=== PATIENT | female | born 1945 | race Caucasian/White ===

== ENCOUNTER 2022-05-28 10:10 | Observation (INO) ==
[2022-05-28] MEDS ORDERED: methylPREDNISolone SOD SUC 125 MG/2 ML VIAL IV STA (10:40)
[2022-05-28] MEDS ORDERED: ALBUTEROL 2.5 MG/3 ML NEB RESP TX STA ×2 (10:40→13:11)
[2022-05-28] MEDS ORDERED: LEVOFLOXACIN INJ 500 MG/100 ML PREMIX IV STA (11:09)
[2022-05-28 12:25] LABS: Basophils % 0.3 % (0.0-0.8); Eosinophils # 0.3 10*3/uL (0.0-0.87); Eosinophils % 4.5 % (0.00-10.9); Hematocrit 38.4 VOL% (35.7-47.0); Immature Granulocytes % 0.3 %; Immature Granulocytes Absolute 0.02 #; Lymphocytes # 1.6 10*3/uL (1.4-4.0); Lymphocytes % 22.2 % (21.3-54.2); Mean Corpuscular HGB Conc 31.3 GM/DL (32-36); Mean Corpuscular Volume 93.7 FL (87-102); Mean Platelet Volume 9.1 FL (9.6-12.0); Monocytes # 0.6 10*3/uL (0.11-0.8); Monocytes % 8.2 % (1.7-12.7); Neutrophils % 64.5 % (38.7-73.9); Platelet Count 208 T/CUMM (130-400); Red Cell Distribution Width 13.1 % (9.3-17.3); White Blood Count 7.3 T/CUMM (4-12)
[2022-05-28 12:55] LABS: Albumin 3.5 G/DL (3.4-5.0); Bilirubin,Total 0.6 MG/DL (0.20-1.00); Potassium 3.7 MMOL/L (3.5-5.1); Total Protein 6.5 G/DL (6.4-8.2)
[2022-05-28] MEDS ORDERED: ALBUTEROL/IPRATROPIUM 3 ML NEB RESP TX PRN (14:00)
[2022-05-28] MEDS: amLODIPine 5 MG TABLET PO SCH (15:00)
[2022-05-28] MEDS: PANTOPRAZOLE 40 MG TABLET PO SCH (15:00)
[2022-05-28] MEDS: ENOXAPARIN 40 MG/0.4 ML SYRINGE SUBCUT SCH (16:13)
[2022-05-28] MEDS: DOXYCYCLINE HYCLATE INJ 100 MG in SODIUM CHLORIDE 0.9% 100 ML IV SCH (16:15)
[2022-05-28] MEDS: DOCUSATE SODIUM 100 MG CAPSULE PO SCH (21:37)
[2022-05-28] MEDS: methylPREDNISolone SOD SUC 125 MG/2 ML VIAL IV SCH (21:37)
[2022-05-28] MEDS: POLYETHYLENE GLYCOL POWDER 17 GM PACK PO SCH (21:37)
[2022-05-29] MEDS: DOXYCYCLINE HYCLATE INJ 100 MG in SODIUM CHLORIDE 0.9% 100 ML IV SCH ×2 (04:15→16:01)
[2022-05-29] MEDS: methylPREDNISolone SOD SUC 125 MG/2 ML VIAL IV SCH (04:16)
[2022-05-29 06:12] LABS: Hematocrit 35.9 VOL% (35.7-47.0); Hemoglobin 11.3 GM/DL (12.0-16.0); Immature Granulocytes % 1.2 %; Immature Granulocytes Absolute 0.08 #; Lymphocytes # 0.4 10*3/uL (1.4-4.0); Lymphocytes % 5.7 % (21.3-54.2); Mean Corpuscular HGB Conc 31.5 GM/DL (32-36); Mean Corpuscular Volume 93.2 FL (87-102); Mean Platelet Volume 9.8 FL (9.6-12.0); Monocytes # 0.1 10*3/uL (0.11-0.8); Monocytes % 0.9 % (1.7-12.7); Neutrophils % 92.2 % (38.7-73.9); Platelet Count 205 T/CUMM (130-400); Red Blood Count 3.85 MC/CUMM (3.8-5.5); Red Cell Distribution Width 12.9 % (9.3-17.3); White Blood Count 6.5 T/CUMM (4-12)
[2022-05-29 06:35] LABS: Calcium 8.7 MG/DL (8.5-10.1); Osmolality,Calculated 290.1 MOS/KG (273-304); Potassium 3.8 MMOL/L (3.5-5.1)
[2022-05-29 08:06] LABS: Band Neutrophils 6 % (0-10); Lymphocytes 8 % (20-55); Platelet Estimate Normal; Total Cells Counted 100
[2022-05-29 08:07] LABS: Anisocytosis 1+; Burr Cells Few; Macrocytosis 1+
[2022-05-29] MEDS ORDERED: GLUCAGON 1 MG VIAL IM PRN (08:17)
[2022-05-29] MEDS ORDERED: DEXTROSE 10% 250 ML BAG IV PRN (08:20)
[2022-05-29] MEDS: amLODIPine 5 MG TABLET PO SCH (08:39)
[2022-05-29] MEDS: PANTOPRAZOLE 40 MG TABLET PO SCH (08:39)
[2022-05-29] MEDS: POLYETHYLENE GLYCOL POWDER 17 GM PACK PO SCH ×2 (08:39→21:53)
[2022-05-29] MEDS: VIBEGRON 75 MG PO SCH (08:39)
[2022-05-29] MEDS: DOCUSATE SODIUM 100 MG CAPSULE PO SCH ×2 (08:39→21:53)
[2022-05-29] MEDS ORDERED: SODIUM PHOSPHATE ENEMA 133 ML BOTTLE RECTAL ONE (10:15)
[2022-05-29] MEDS: INSULIN LISPRO 100 UNIT/ML SUBCUT SCH ×3 (13:15→21:55)
[2022-05-29] MEDS: methylPREDNISolone SOD SUC 40 MG/1 ML VIAL IV SCH (16:00)
[2022-05-29] MEDS: ENOXAPARIN 40 MG/0.4 ML SYRINGE SUBCUT SCH (16:00)
[2022-05-29] MEDS: FLUTICASONE/SALMETEROL 500-50 DISKUS 14 DOSE INH SCH ×2 (16:55→21:57)
[2022-05-30] MEDS: methylPREDNISolone SOD SUC 40 MG/1 ML VIAL IV SCH (03:16)
[2022-05-30] MEDS: DOXYCYCLINE HYCLATE INJ 100 MG in SODIUM CHLORIDE 0.9% 100 ML IV SCH (03:17)
[2022-05-30] MEDS ORDERED: predniSONE 20 MG TABLET PO SCH (09:00)
[2022-05-30] MEDS: INSULIN LISPRO 100 UNIT/ML SUBCUT SCH ×2 (09:42→12:08)
[2022-05-30] MEDS: amLODIPine 5 MG TABLET PO SCH (09:43)
[2022-05-30] MEDS: PANTOPRAZOLE 40 MG TABLET PO SCH (09:43)
[2022-05-30] MEDS: VIBEGRON 75 MG PO SCH (09:44)
[2022-05-30] MEDS: FLUTICASONE/SALMETEROL 500-50 DISKUS 14 DOSE INH SCH (09:44)
[2022-05-30] MEDS: POLYETHYLENE GLYCOL POWDER 17 GM PACK PO SCH (09:45)
[2022-05-30] MEDS: DOCUSATE SODIUM 100 MG CAPSULE PO SCH (09:45)
[2022-05-30 12:47] VITALS: BP 144/59
== END 2022-05-30 13:10 | disposition home or self-care (01) ==
LOC: SUATTDRO → N.EDINP 10:10 → N.ED 10:10 → SUATTDRO 13:57 → N.EDINP 05-29 01:05 → N.3E 05-29 01:35
PROVIDERS: ADMIT Internal Medicine; ATTEND Internal Medicine

== ENCOUNTER 2022-07-03 15:56 | Inpatient (IN) ==
[2022-07-03] MEDS ORDERED: DEXAMETHASONE 4 MG/1 ML VIAL IV STA (16:44)
[2022-07-03] MEDS ORDERED: ALBUTEROL NEB SOLN 5 MG/ML 20 ML/BOTTLE CONT NEB STA (16:44)
[2022-07-03 16:47] LABS: Basophils % 0.4 % (0.0-0.8); Eosinophils # 0.8 10*3/uL (0.0-0.87); Hemoglobin 11.1 GM/DL (12.0-16.0); Immature Granulocytes % 0.7 %; Immature Granulocytes Absolute 0.08 #; Lymphocytes # 0.9 10*3/uL (1.4-4.0); Lymphocytes % 8.3 % (21.3-54.2); Mean Corpuscular HGB Conc 30.8 GM/DL (32-36); Mean Platelet Volume 9.3 FL (9.6-12.0); Monocytes % 8.6 % (1.7-12.7); Platelet Count 231 T/CUMM (130-400); Red Blood Count 3.87 MC/CUMM (3.8-5.5); Red Cell Distribution Width 13.5 % (9.3-17.3); White Blood Count 11.3 T/CUMM (4-12)
[2022-07-03] MEDS ORDERED: cefTRIAXone 1,000 MG in SODIUM CHLORIDE 0.9% 100 ML IV STA (17:12)
[2022-07-03] MEDS ORDERED: AZITHROMYCIN INJ 500 MG in SODIUM CHLORIDE 0.9% 250 ML IV STA (17:12)
[2022-07-03 17:22] LABS: Albumin 3.2 G/DL (3.4-5.0); Bilirubin,Total 0.6 MG/DL (0.20-1.00); Calcium 8.9 MG/DL (8.5-10.1); Potassium 4.4 MMOL/L (3.5-5.1); Total Protein 6.1 G/DL (6.4-8.2)
[2022-07-03] MEDS ORDERED: SODIUM CHLORIDE 0.9% 1,000 ML IV STA (18:01)
[2022-07-03] MEDS ORDERED: ONDANSETRON 4 MG/2 ML VIAL IV PRN (18:18)
[2022-07-03] MEDS ORDERED: ACETAMINOPHEN 325 MG TABLET PO PRN (18:18)
[2022-07-03] MEDS: ALBUTEROL/IPRATROPIUM 3 ML NEB RESP TX SCH (19:10)
[2022-07-03] MEDS: ENOXAPARIN 40 MG/0.4 ML SYRINGE SUBCUT SCH (21:09)
[2022-07-03] MEDS: DOCUSATE SODIUM 100 MG CAPSULE PO SCH (21:09)
[2022-07-03] MEDS: BUDESONIDE/FORMOTEROL 160-4.5 INHALER 6 GM INH SCH (21:09)
[2022-07-04] MEDS: ALBUTEROL/IPRATROPIUM 3 ML NEB RESP TX SCH ×5 (00:17→23:57)
[2022-07-04 07:05] LABS: Basophils % 0.4 % (0.0-0.8); Eosinophils # 0.9 10*3/uL (0.0-0.87); Eosinophils % 10.9 % (0.00-10.9); Hematocrit 31.5 VOL% (35.7-47.0); Hemoglobin 9.7 GM/DL (12.0-16.0); Immature Granulocytes % 0.5 %; Immature Granulocytes Absolute 0.04 #; Lymphocytes # 1.2 10*3/uL (1.4-4.0); Lymphocytes % 15.4 % (21.3-54.2); Mean Corpuscular HGB Conc 30.8 GM/DL (32-36); Mean Corpuscular Volume 94.3 FL (87-102); Monocytes # 0.9 10*3/uL (0.11-0.8); Monocytes % 10.9 % (1.7-12.7); Neutrophils % 61.9 % (38.7-73.9); Platelet Count 208 T/CUMM (130-400); Red Blood Count 3.34 MC/CUMM (3.8-5.5); Red Cell Distribution Width 13.6 % (9.3-17.3); White Blood Count 7.8 T/CUMM (4-12)
[2022-07-04 07:19] LABS: Albumin 2.8 G/DL (3.4-5.0); Bilirubin,Total 0.5 MG/DL (0.20-1.00); Calcium 8.7 MG/DL (8.5-10.1); Osmolality,Calculated 285.8 MOS/KG (273-304); Potassium 4.1 MMOL/L (3.5-5.1); Total Protein 5.9 G/DL (6.4-8.2)
[2022-07-04] MEDS: amLODIPine 5 MG TABLET PO SCH (09:05)
[2022-07-04] MEDS: PANTOPRAZOLE 40 MG TABLET PO SCH (09:06)
[2022-07-04] MEDS: VIBEGRON 75 MG PO SCH (09:06)
[2022-07-04] MEDS: BUDESONIDE/FORMOTEROL 160-4.5 INHALER 6 GM INH SCH ×2 (09:06→21:21)
[2022-07-04] MEDS: DOCUSATE SODIUM 100 MG CAPSULE PO SCH ×2 (09:06→20:21)
[2022-07-04] MEDS ORDERED: methylPREDNISolone SOD SUC 125 MG/2 ML VIAL IV ONE (09:30)
[2022-07-04] MEDS: LIDOCAINE 5% PATCH TRANSDERM SCH (13:30)
[2022-07-04] MEDS: cefTRIAXone 1,000 MG in SODIUM CHLORIDE 0.9% 100 ML IV SCH (16:53)
[2022-07-04] MEDS: AZITHROMYCIN INJ 500 MG in SODIUM CHLORIDE 0.9% 250 ML IV SCH (18:41)
[2022-07-04] MEDS: GABAPENTIN 100 MG CAPSULE PO SCH (20:21)
[2022-07-04] MEDS: ENOXAPARIN 40 MG/0.4 ML SYRINGE SUBCUT SCH (20:25)
[2022-07-04] MEDS: methylPREDNISolone SOD SUC 40 MG/1 ML VIAL IV SCH (20:25)
[2022-07-04] MEDS: ALBUTEROL 1.25 MG/3 ML NEB RESP TX PRN (21:55)
[2022-07-05] MEDS: ALBUTEROL 1.25 MG/3 ML NEB RESP TX PRN ×2 (05:58→10:00)
[2022-07-05 06:05] LABS: Basophils % 0.1 % (0.0-0.8); Hematocrit 33.9 VOL% (35.7-47.0); Hemoglobin 10.5 GM/DL (12.0-16.0); Immature Granulocytes % 1.2 %; Immature Granulocytes Absolute 0.09 #; Lymphocytes # 0.4 10*3/uL (1.4-4.0); Lymphocytes % 5.9 % (21.3-54.2); Mean Corpuscular Volume 92.4 FL (87-102); Mean Platelet Volume 9.7 FL (9.6-12.0); Monocytes # 0.3 10*3/uL (0.11-0.8); Neutrophils % 88.8 % (38.7-73.9); Platelet Count 235 T/CUMM (130-400); Red Blood Count 3.67 MC/CUMM (3.8-5.5); Red Cell Distribution Width 13.2 % (9.3-17.3); White Blood Count 7.5 T/CUMM (4-12)
[2022-07-05] MEDS: ALBUTEROL/IPRATROPIUM 3 ML NEB RESP TX SCH ×3 (07:20→19:50)
[2022-07-05] MEDS: DOCUSATE SODIUM 100 MG CAPSULE PO SCH ×2 (09:43→21:00)
[2022-07-05] MEDS: amLODIPine 5 MG TABLET PO SCH (09:43)
[2022-07-05] MEDS: PANTOPRAZOLE 40 MG TABLET PO SCH (09:43)
[2022-07-05] MEDS: VIBEGRON 75 MG PO SCH (09:44)
[2022-07-05] MEDS: methylPREDNISolone SOD SUC 40 MG/1 ML VIAL IV SCH ×2 (09:44→21:05)
[2022-07-05] MEDS: LIDOCAINE 5% PATCH TRANSDERM SCH (09:44)
[2022-07-05] MEDS: BUDESONIDE/FORMOTEROL 160-4.5 INHALER 6 GM INH SCH ×2 (09:45→21:10)
[2022-07-05] MEDS ORDERED: BISACODYL 5 MG TABLET PO ONE (10:00)
[2022-07-05] MEDS: POLYETHYLENE GLYCOL POWDER 17 GM PACK PO SCH (10:32)
[2022-07-05] MEDS ORDERED: MORPHINE 2 MG/1 ML SYRINGE IV ONE (14:09)
[2022-07-05] MEDS ORDERED: LORazepam 2 MG/1 ML VIAL IV ONE (14:10)
[2022-07-05] MEDS: cefTRIAXone 1,000 MG in SODIUM CHLORIDE 0.9% 100 ML IV SCH (16:54)
[2022-07-05] MEDS: AZITHROMYCIN INJ 500 MG in SODIUM CHLORIDE 0.9% 250 ML IV SCH (17:55)
[2022-07-05] MEDS: GABAPENTIN 100 MG CAPSULE PO SCH (21:00)
[2022-07-05] MEDS: ENOXAPARIN 40 MG/0.4 ML SYRINGE SUBCUT SCH (21:01)
[2022-07-06] MEDS: ALBUTEROL/IPRATROPIUM 3 ML NEB RESP TX SCH ×4 (00:20→19:57)
[2022-07-06 05:36] LABS: Basophils % 0.1 % (0.0-0.8); Hematocrit 34.3 VOL% (35.7-47.0); Hemoglobin 10.3 GM/DL (12.0-16.0); Immature Granulocytes % 0.9 %; Immature Granulocytes Absolute 0.07 #; Lymphocytes # 0.5 10*3/uL (1.4-4.0); Lymphocytes % 5.6 % (21.3-54.2); Mean Corpuscular Volume 95.8 FL (87-102); Mean Platelet Volume 10.3 FL (9.6-12.0); Monocytes # 0.3 10*3/uL (0.11-0.8); Monocytes % 3.3 % (1.7-12.7); Neutrophils % 90.1 % (38.7-73.9); Platelet Count 218 T/CUMM (130-400); Red Blood Count 3.58 MC/CUMM (3.8-5.5); Red Cell Distribution Width 13.2 % (9.3-17.3)
[2022-07-06 05:53] LABS: Calcium 8.6 MG/DL (8.5-10.1); Osmolality,Calculated 287.3 MOS/KG (273-304)
[2022-07-06 09:12] LABS: % Iron Saturation 18.2 % (18-50); Ferritin 134.4 ng/mL (8-252)
[2022-07-06] MEDS: POLYETHYLENE GLYCOL POWDER 17 GM PACK PO SCH (10:30)
[2022-07-06] MEDS: LIDOCAINE 5% PATCH TRANSDERM SCH (10:30)
[2022-07-06] MEDS: BUDESONIDE/FORMOTEROL 160-4.5 INHALER 6 GM INH SCH ×2 (10:31→21:59)
[2022-07-06] MEDS: DOCUSATE SODIUM 100 MG CAPSULE PO SCH ×2 (10:31→21:57)
[2022-07-06] MEDS: amLODIPine 5 MG TABLET PO SCH (10:31)
[2022-07-06] MEDS: PANTOPRAZOLE 40 MG TABLET PO SCH (10:31)
[2022-07-06] MEDS: VIBEGRON 75 MG PO SCH (10:32)
[2022-07-06] MEDS: ALBUTEROL 1.25 MG/3 ML NEB RESP TX PRN (11:58)
[2022-07-06] MEDS ORDERED: BISACODYL 5 MG TABLET PO ONE (12:30)
[2022-07-06] MEDS: methylPREDNISolone SOD SUC 40 MG/1 ML VIAL IV SCH ×2 (12:55→21:58)
[2022-07-06 13:41] LABS: Folate 7.52 NG/ML (5.38-24.0)
[2022-07-06] MEDS ORDERED: POLYETHYLENE GLYCOL POWDER 255 GM BOTTLE PO ONE (15:58)
[2022-07-06] MEDS ORDERED: LACTULOSE 20 GM/30 ML UDCUP PO ONE (15:59)
[2022-07-06] MEDS: cefTRIAXone 1,000 MG in SODIUM CHLORIDE 0.9% 100 ML IV SCH (16:20)
[2022-07-06] MEDS: AZITHROMYCIN INJ 500 MG in SODIUM CHLORIDE 0.9% 250 ML IV SCH (17:01)
[2022-07-06] MEDS: GABAPENTIN 100 MG CAPSULE PO SCH (21:58)
[2022-07-06] MEDS: ENOXAPARIN 40 MG/0.4 ML SYRINGE SUBCUT SCH (21:59)
[2022-07-07] MEDS: ALBUTEROL/IPRATROPIUM 3 ML NEB RESP TX SCH ×4 (00:18→19:42)
[2022-07-07 04:53] LABS: Basophils % 0.1 % (0.0-0.8); Hemoglobin 10.8 GM/DL (12.0-16.0); Immature Granulocytes % 1.8 %; Immature Granulocytes Absolute 0.12 #; Lymphocytes # 0.6 10*3/uL (1.4-4.0); Lymphocytes % 8.8 % (21.3-54.2); Mean Corpuscular HGB Conc 30.9 GM/DL (32-36); Mean Corpuscular Volume 93.3 FL (87-102); Mean Platelet Volume 9.7 FL (9.6-12.0); Monocytes # 0.3 10*3/uL (0.11-0.8); Monocytes % 4.3 % (1.7-12.7); Platelet Count 240 T/CUMM (130-400); Red Blood Count 3.75 MC/CUMM (3.8-5.5); Red Cell Distribution Width 13.1 % (9.3-17.3); White Blood Count 6.8 T/CUMM (4-12)
[2022-07-07 07:33] LABS: Osmolality,Calculated 286.3 MOS/KG (273-304); Potassium 4.8 MMOL/L (3.5-5.1)
[2022-07-07] MEDS: VIBEGRON 75 MG PO SCH (08:15)
[2022-07-07] MEDS: LIDOCAINE 5% PATCH TRANSDERM SCH (08:28)
[2022-07-07] MEDS: POLYETHYLENE GLYCOL POWDER 17 GM PACK PO SCH (08:29)
[2022-07-07] MEDS: PANTOPRAZOLE 40 MG TABLET PO SCH (08:29)
[2022-07-07] MEDS: amLODIPine 5 MG TABLET PO SCH (08:29)
[2022-07-07] MEDS: DOCUSATE SODIUM 100 MG CAPSULE PO SCH ×2 (08:29→20:24)
[2022-07-07] MEDS: methylPREDNISolone SOD SUC 40 MG/1 ML VIAL IV SCH (08:31)
[2022-07-07] MEDS: BUDESONIDE/FORMOTEROL 160-4.5 INHALER 6 GM INH SCH ×2 (10:00→20:25)
[2022-07-07] MEDS: CHOLECALCIFEROL 5,000 UNIT TABLET PO SCH (10:01)
[2022-07-07] MEDS ORDERED: BISACODYL 10 MG SUPP RECTAL ONE (12:00)
[2022-07-07] MEDS: cefTRIAXone 1,000 MG in SODIUM CHLORIDE 0.9% 100 ML IV SCH (16:43)
[2022-07-07] MEDS: AZITHROMYCIN INJ 500 MG in SODIUM CHLORIDE 0.9% 250 ML IV SCH (17:39)
[2022-07-07] MEDS ORDERED: MORPHINE 2 MG/1 ML SYRINGE IV ONE (19:30)
[2022-07-07] MEDS: MENTHOL/ZINC OXIDE OINT 71 GM JAR TOP SCH (20:24)
[2022-07-07] MEDS: predniSONE 20 MG TABLET PO SCH (20:24)
[2022-07-07] MEDS: GABAPENTIN 100 MG CAPSULE PO SCH (20:24)
[2022-07-07] MEDS: ENOXAPARIN 40 MG/0.4 ML SYRINGE SUBCUT SCH (20:25)
[2022-07-08] MEDS: ALBUTEROL/IPRATROPIUM 3 ML NEB RESP TX SCH ×3 (00:14→13:35)
[2022-07-08 05:08] LABS: Basophils % 0.1 % (0.0-0.8); Eosinophils % 0.1 % (0.00-10.9); Hematocrit 36.5 VOL% (35.7-47.0); Hemoglobin 11.3 GM/DL (12.0-16.0); Immature Granulocytes % 1.8 %; Immature Granulocytes Absolute 0.16 #; Lymphocytes # 0.8 10*3/uL (1.4-4.0); Lymphocytes % 8.7 % (21.3-54.2); Mean Corpuscular Volume 92.9 FL (87-102); Mean Platelet Volume 10.8 FL (9.6-12.0); Monocytes # 0.7 10*3/uL (0.11-0.8); Monocytes % 7.8 % (1.7-12.7); Neutrophils % 81.5 % (38.7-73.9); Platelet Count 210 T/CUMM (130-400); Red Blood Count 3.93 MC/CUMM (3.8-5.5); Red Cell Distribution Width 13.3 % (9.3-17.3); White Blood Count 8.7 T/CUMM (4-12)
[2022-07-08 05:21] LABS: Calcium 8.9 MG/DL (8.5-10.1); Osmolality,Calculated 282.5 MOS/KG (273-304)
[2022-07-08] MEDS: POLYETHYLENE GLYCOL POWDER 17 GM PACK PO SCH (08:50)
[2022-07-08] MEDS: LIDOCAINE 5% PATCH TRANSDERM SCH (08:50)
[2022-07-08] MEDS: predniSONE 20 MG TABLET PO SCH (08:51)
[2022-07-08] MEDS: DOCUSATE SODIUM 100 MG CAPSULE PO SCH (08:51)
[2022-07-08] MEDS: amLODIPine 5 MG TABLET PO SCH (08:51)
[2022-07-08] MEDS: PANTOPRAZOLE 40 MG TABLET PO SCH (08:51)
[2022-07-08] MEDS: CHOLECALCIFEROL 5,000 UNIT TABLET PO SCH (08:52)
[2022-07-08] MEDS: BUDESONIDE/FORMOTEROL 160-4.5 INHALER 6 GM INH SCH (08:53)
[2022-07-08] MEDS: MENTHOL/ZINC OXIDE OINT 71 GM JAR TOP SCH (08:54)
[2022-07-08] MEDS: VIBEGRON 75 MG PO SCH (09:49)
[2022-07-08] MEDS: cefTRIAXone 1,000 MG in SODIUM CHLORIDE 0.9% 100 ML IV SCH (11:29)
[2022-07-08 16:22] VITALS: BP 140/57
[2022-07-11 16:11] LABS: Specimen Source NASAL SWAB
== END 2022-07-08 18:39 | disposition home health service (06) | DRG 190 ==
LOC: N.EDINP 15:56 → N.ED 15:56 → N.3E 19:27 → SUATTDRO 07-04 09:27
PROVIDERS: ADMIT Internal Medicine; ATTEND Internal Medicine